=== PATIENT | female | born 1985 | race Caucasian/White ===

== ENCOUNTER 2017-10-13 08:39 | Inpatient (IN) | payer MEDICAID ==
[2017-10-13] MEDS ORDERED: CARBOPROST 250 MCG INJ IM ×2 (09:00→14:30)
[2017-10-13] MEDS ORDERED: IBUPROFEN 600 MG TAB PO (09:00)
[2017-10-13] MEDS ORDERED: METHYLERGONOVINE 0.2 MG INJ IM ×2 (09:00→14:30)
[2017-10-13] MEDS ORDERED: BUTORPHANOL 2 MG INJ IV (09:00)
[2017-10-13] MEDS ORDERED: MISOPROSTOL 200 MCG TAB PR ×2 (09:00→14:30)
[2017-10-13] MEDS ORDERED: LIDOCAINE 1% (MPF) 30 ML INJ INJ (09:00)
[2017-10-13] MEDS ORDERED: OXYTOCIN 30 UNITS/LR 500 ML IV ×2 (09:00→14:30)
[2017-10-13] MEDS: LACTATED RINGER'S 1,000 ML IV ×3 (09:22→13:48)
[2017-10-13 10:05] LABS: ADD MAN DIFF? NO
[2017-10-13 10:08] LABS: ABNORMAL IP MESSAGE 1; BASOPHILS % 0.5 % (0.0-2.0); EOSINOPHILS # 0.1 10^3/ul (0.0-0.5); EOSINOPHILS % 0.9 % (0.0-7.0); HEMATOCRIT 38.3 % (37.0-47.0); HEMOGLOBIN 13.1 g/dl (12.0-16.0); LYMPHOCYTES % 26.3 % (15.0-51.0); MEAN CORPUSCULAR HEMOGLOBIN 30.8 pg (29.0-33.0); MEAN CORPUSCULAR HGB CONC 34.2 g/dl (32.0-37.0); MEAN CORPUSCULAR VOLUME 90.1 fl (82.0-101.0); MONOCYTE # 0.4 10^3/ul (0.3-0.9); MONOCYTES % 5.8 % (0.0-11.0); NEUTROPHIL # 5.1 10^3/ul (1.6-7.5); PLATELET COUNT 83 10^3/UL (140-415); RED BLOOD COUNT 4.25 10^6/ul (4.20-5.40); RED CELL DISTRIBUTION WIDTH 13.6 % (11.5-14.5)
[2017-10-13 10:08] LABS: WHITE BLOOD COUNT 7.7 10^3/ul (4.8-10.8)
[2017-10-13 10:12] LABS: POSITIVE DIFF @See below
[2017-10-13 10:30] LABS: INR 0.82; PROTIME 11.3 Sec (11.9-14.9); PT RATIO 0.9
[2017-10-13 10:31] LABS: PARTIAL THROMBOPLASTIN TIME 25.8 Sec (25.0-35.0)
[2017-10-13] MEDS: DINOPROSTONE 10 MG VAG SUPP VAG (10:39)
[2017-10-13] MEDS ORDERED: FENTAnyl 2MCG/ML-ROPIV 0.2% 100 ML (12:22)
[2017-10-13] MEDS ORDERED: DIPHENHYDRAMINE 50 MG INJ IV ×2 (12:30→14:30)
[2017-10-13] MEDS ORDERED: ONDANSETRON 4 MG INJ IV (12:30)
[2017-10-13] MEDS ORDERED: NALOXONE (0.4 MG/ML) INJ IV (12:30)
[2017-10-13] MEDS: FENTAnyl 2MCG/ML-ROPIV 0.2% 100 ML BAG EPI (13:06)
[2017-10-13] MEDS ORDERED: TERBUTALINE 0 ML (13:16)
[2017-10-13] MEDS ORDERED: TERBUTALINE 1 MG/ML INJ SC (13:30)
[2017-10-13 13:58] LABS: HEPATITIS B SURFACE ANTIGEN NEGATIVE (NEGATIVE)
[2017-10-13] MEDS: OXYTOCIN 30 UNITS/LR 500 ML IV ×4 (14:02→22:30)
[2017-10-13] MEDS: LACTATED RINGER'S 1,000 ML IV* ×2 (14:22→22:22)
[2017-10-13] MEDS ORDERED: HYDROCODONE/APAP (5/325) TAB PO (14:30)
[2017-10-13] MEDS ORDERED: ALBUTEROL HFA 8 GM INHALER INH (14:30)
[2017-10-13] MEDS ORDERED: ONDANSETRON 4 MG TAB PO (14:30)
[2017-10-13] MEDS ORDERED: ACETAMINOPHEN 325 MG TAB PO ×2 (14:30)
[2017-10-13] MEDS ORDERED: DIPHENHYDRAMINE 25 MG CAP PO (14:30)
[2017-10-13] MEDS ORDERED: DIBUCAINE 1% 30 GM OINT PR (14:30)
[2017-10-13 15:40] LABS: RAPID PLASMA REAGIN NONREACTIVE (NR)
[2017-10-13] MEDS: IBUPROFEN 800 MG TAB PO ×2 (17:30→23:42)
[2017-10-13] MEDS: WITCH HAZEL/GLYCERIN PAD PR (17:30)
[2017-10-13] MEDS: CEPHALEXIN 500 MG CAP PO ×2 (17:31→21:31)
[2017-10-13] MEDS: LANOLIN 7 GM TUBE TOP (17:32)
[2017-10-13] MEDS: SENNA/DOCUSATE NA (8.6MG/50MG) TAB PO (21:31)
[2017-10-14] MEDS: OXYTOCIN 30 UNITS/LR 500 ML IV ×5 (02:30→18:13)
[2017-10-14] MEDS: IBUPROFEN 800 MG TAB PO ×4 (05:55→23:30)
[2017-10-14] MEDS: LACTATED RINGER'S 1,000 ML IV* ×2 (05:56→14:22)
[2017-10-14 08:26] LABS: ADD MAN DIFF? NO
[2017-10-14 08:28] LABS: WHITE BLOOD COUNT 7.4 10^3/ul (4.8-10.8)
[2017-10-14 08:28] LABS: ABNORMAL IP MESSAGE 1; BASOPHIL # 0.1 10^3/ul (0.0-0.1); BASOPHILS % 0.7 % (0.0-2.0); EOSINOPHILS # 0.1 10^3/ul (0.0-0.5); EOSINOPHILS % 1.5 % (0.0-7.0); HEMATOCRIT 36.4 % (37.0-47.0); HEMOGLOBIN 12.2 g/dl (12.0-16.0); LYMPHOCYTES # 2.4 10^3/ul (0.8-2.9); LYMPHOCYTES % 32.2 % (15.0-51.0); MEAN CORPUSCULAR HEMOGLOBIN 30.4 pg (29.0-33.0); MEAN CORPUSCULAR HGB CONC 33.5 g/dl (32.0-37.0); MEAN CORPUSCULAR VOLUME 90.8 fl (82.0-101.0); MEAN PLATELET VOLUME 14.6 fl (7.4-10.4); MONOCYTE # 0.4 10^3/ul (0.3-0.9); MONOCYTES % 5.4 % (0.0-11.0); NEUTROPHIL # 4.4 10^3/ul (1.6-7.5); NEUTROPHILS % 59.7 % (39.0-77.0); PLATELET COUNT 65 10^3/UL (140-415); RED BLOOD COUNT 4.01 10^6/ul (4.20-5.40); RED CELL DISTRIBUTION WIDTH 13.8 % (11.5-14.5)
[2017-10-14 08:32] LABS: POSITIVE DIFF @See below
[2017-10-14] MEDS: CEPHALEXIN 500 MG CAP PO ×5 (08:50→23:30)
[2017-10-14] MEDS: SENNA/DOCUSATE NA (8.6MG/50MG) TAB PO ×2 (08:50→21:08)
[2017-10-14] MEDS: HYDROCODONE/APAP (5/325) TAB PO (08:51)
[2017-10-14] MEDS: FLUTICASONE 0.05% 16 GM NAS SPRAY NASAL (09:00)
[2017-10-14] MEDS: INFLUENZA VIRUS VACCINE 0.5 ML (DISPENSING) IM* (17:17)
[2017-10-15] MEDS: IBUPROFEN 800 MG TAB PO (05:37)
[2017-10-15] MEDS: MEASLES,MUMPS,RUBELLA VACCINE INJ SC* (09:00)
[2017-10-15] MEDS: FLUTICASONE 0.05% 16 GM NAS SPRAY NASAL (09:00)
[2017-10-15] MEDS: SENNA/DOCUSATE NA (8.6MG/50MG) TAB PO (09:09)
[2017-10-15] MEDS: CEPHALEXIN 500 MG CAP PO (09:09)
[2017-10-15 09:29] LABS: ADD MAN DIFF? NO
[2017-10-15 09:33] LABS: ABNORMAL IP MESSAGE 1; BASOPHIL # 0.1 10^3/ul (0.0-0.1); BASOPHILS % 0.7 % (0.0-2.0); EOSINOPHILS # 0.1 10^3/ul (0.0-0.5); EOSINOPHILS % 2.1 % (0.0-7.0); HEMATOCRIT 36.5 % (37.0-47.0); HEMOGLOBIN 12.2 g/dl (12.0-16.0); LYMPHOCYTES # 2.4 10^3/ul (0.8-2.9); LYMPHOCYTES % 35.5 % (15.0-51.0); MEAN CORPUSCULAR HGB CONC 33.4 g/dl (32.0-37.0); MEAN CORPUSCULAR VOLUME 92.9 fl (82.0-101.0); MONOCYTE # 0.4 10^3/ul (0.3-0.9); MONOCYTES % 5.6 % (0.0-11.0); NEUTROPHIL # 3.7 10^3/ul (1.6-7.5); NEUTROPHILS % 55.5 % (39.0-77.0); RED BLOOD COUNT 3.93 10^6/ul (4.20-5.40); RED CELL DISTRIBUTION WIDTH 13.9 % (11.5-14.5)
[2017-10-15 09:33] LABS: WHITE BLOOD COUNT 6.7 10^3/ul (4.8-10.8)
[2017-10-15 09:39] LABS: PLATELET COUNT 71 10^3/UL (140-415); POSITIVE DIFF @See below
[2017-10-15] MEDS: DIPHTH/TET/ACEL PERTUSS (ADULT) 0.5 ML VIAL IM* (11:18)
== END 2017-10-15 12:59 | disposition home or self-care (01) | DRG 775 ==
LOC: L-D 08:39 → PP1 17:18
PROVIDERS: Obstetrics & Gynecology
PROC: 10E0XZZ Delivery of Products of Conception, External Approach (ICD-10-PCS; principal; 2017-10-14)
DX: O80 Encounter for full-term uncomplicated delivery (principal); Z37.0 Single live birth; Z3A.39 39 weeks gestation of pregnancy
CPT/HCPCS: 62319; 85025; 85610; 85730; 86592; 86900; 86901; 87340; 90686; 90715